=== PATIENT | female | born 1960 | race Caucasian/White ===

== ENCOUNTER 2021-08-19 12:48 | Emergency (ER) | payer OTHER ==
[2021-08-19 13:06] VITALS: TEMP 97; BMI 31.2
[2021-08-19] MEDS ORDERED: ACETAMINOPHEN 500 MG TABLET (FP) PO ONE (14:25)
[2021-08-19] MEDS ORDERED: ACETAMINOPHEN 1000 MG/100 ML VIAL IVPB ONE (14:34)
[2021-08-19] MEDS ORDERED: ACETAMINOPHEN INJECTION 100 ML IVPB ONE (14:36)
[2021-08-19] MEDS ORDERED: SODIUM CHLORIDE 0.9% 500 ML INFUS.BAG IV ONE (14:36)
[2021-08-19 15:05] LABS: BASO % 0.6 % (0-2.0); HEMATOCRIT 36.7 % (32.4-45.2); HEMOGLOBIN 13.2 GM/dL (10.7-15.3); LYMPH % 10.5 % (8-40); MCHC 35.9 g/dl (32.0-36.0); MEAN CELL VOLUME 83.5 fl (80-96); MEAN PLT VOLUME 7.2 fl (7.5-11.1); MONO % 7.5 % (3.8-10.2); NEUT % 81.4 % (42.8-82.8); PLATELET COUNT 247 10^3/uL (134-434); WHITE BLOOD COUNT 9.1 K/mm3 (4.0-10.0)
[2021-08-19 15:22] LABS: CHLORIDE 99 mmol/L (98-107); SODIUM 134 mmol/L (136-145)
[2021-08-19 15:25] LABS: ALBUMIN 3.4 g/dl (3.4-5.0); ANION GAP 6 MMOL/L (8-16); BLOOD UREA NITROGEN 12.4 mg/dL (7-18); CALCIUM 8.8 mg/dL (8.5-10.1); CO2 29 mmol/L (21-32)
[2021-08-19 15:26] LABS: GLUCOSE,RANDOM 206 mg/dL (74-106)
[2021-08-19 15:28] LABS: CREATININE 0.8 mg/dL (0.55-1.3); SGOT/AST 12 U/L (15-37); SGPT/ALT 30 U/L (13-61)
[2021-08-19 15:29] LABS: BILIRUBIN,TOTAL 0.5 mg/dL (0.2-1); TOT PROT 7.3 g/dl (6.4-8.2)
[2021-08-19 15:30] LABS: ALK PHOS 87 U/L (45-117)
[2021-08-19 15:34] LABS: PHOSPHOROUS 0.9 mg/dL (2.5-4.9)
[2021-08-19] MEDS ORDERED: NAPH,MB-DB/K PH,MBDB POWDER PACKET PO ONE (16:59)
[2021-08-19 17:41] LABS: URINE APPEARANCE CLEAR; URINE BILIRUBIN NEGATIVE (NEGATIVE); URINE COLOR YELLOW; URINE GLUCOSE (UA) NEGATIVE (NEGATIVE); URINE KETONE 1+ (NEGATIVE); URINE LEUK ESTERASE NEGATIVE (NEGATIVE); URINE NITRITE NEGATIVE (NEGATIVE); URINE PROTEIN NEGATIVE (NEGATIVE); URINE UROBILINOGEN 0.2 mg/dL (0.2-1.0)
[2021-08-19] MEDS ORDERED: METOCLOPRAMIDE HCL 10 MG TABLET (FP) PO ONE (17:43)
[2021-08-19] MEDS ORDERED: KETOROLAC TROMETHAMINE 15 MG/ML VIAL IVPUSH ONE (17:44)
[2021-08-19] MEDS ORDERED: NAPH,MB-DB/K PH,MBDB POWDER PACKET ONE (18:12)
[2021-08-19] MEDS ORDERED: KETOROLAC TROMETHAMINE 15 MG/ML VIAL ONE (18:13)
[2021-08-19 19:33] VITALS: BP 103/82; PULSE 103
== END 2021-08-19 20:13 | disposition home or self-care (01) ==
LOC: JER 12:48
PROC: 3E0333Z Introduction of Anti-inflammatory into Peripheral Vein, Percutaneous Approach (ICD-10-PCS; principal; 2021-08-19)
PROC: 3E033GC Introduction of Other Therapeutic Substance into Peripheral Vein, Percutaneous Approach (ICD-10-PCS; 2021-08-19)
PROC: 3E0333Z Introduction of Anti-inflammatory into Peripheral Vein, Percutaneous Approach (ICD-10-PCS; 2021-08-19)
DX: R51.9 Headache, unspecified (principal); R10.9 Unspecified abdominal pain
CPT/HCPCS: 36415; 70450-TC; 71046-TC-FY; 80053; 81003; 82550; 83735; 84100; 84484; 85025; 87086; 87804; 93005; 93010; 99285-25; C9803; J0131; U0003; U0005

== ENCOUNTER 2021-08-21 12:34 | Emergency (ER) | payer OTHER ==
[2021-08-21 12:57] VITALS: BP 108/66; PULSE 88; TEMP 100.1; BMI 33.2
[2021-08-21] MEDS ORDERED: SODIUM CHLORIDE 1,000 ML IV STA (14:00)
[2021-08-21] MEDS ORDERED: ACETAMINOPHEN 1000 MG/100 ML VIAL IVPB ONE (14:00)
[2021-08-21] MEDS ORDERED: ACETAMINOPHEN INJECTION 100 ML IVPB ONE (14:35)
[2021-08-21 15:02] LABS: BASO % 0.5 % (0-2.0); HEMATOCRIT 37.3 % (32.4-45.2); LYMPH % 15.2 % (8-40); MCH 29.2 pg (25.7-33.7); MEAN CELL VOLUME 83.4 fl (80-96); MEAN PLT VOLUME 7.6 fl (7.5-11.1); MONO % 6.6 % (3.8-10.2); NEUT % 77.7 % (42.8-82.8); PLATELET COUNT 264 10^3/uL (134-434); RBC 4.47 M/mm3 (3.60-5.2); RDW 13.4 % (11.6-15.6); WHITE BLOOD COUNT 7.1 K/mm3 (4.0-10.0)
[2021-08-21 15:20] LABS: CHLORIDE 96 mmol/L (98-107); SODIUM 132 mmol/L (136-145)
[2021-08-21 15:22] LABS: CALCIUM 9.2 mg/dL (8.5-10.1)
[2021-08-21 15:23] LABS: ALBUMIN 3.3 g/dl (3.4-5.0); ANION GAP 10 MMOL/L (8-16); BLOOD UREA NITROGEN 9.8 mg/dL (7-18); CO2 25 mmol/L (21-32); GLUCOSE,RANDOM 151 mg/dL (74-106)
[2021-08-21 15:26] LABS: CREATININE 0.7 mg/dL (0.55-1.3); SGOT/AST 30 U/L (15-37); SGPT/ALT 64 U/L (13-61)
[2021-08-21 15:28] LABS: BILIRUBIN,TOTAL 0.6 mg/dL (0.2-1); TOT PROT 7.3 g/dl (6.4-8.2)
[2021-08-21 15:29] LABS: ALK PHOS 97 U/L (45-117)
== END 2021-08-21 20:00 | disposition home or self-care (01) ==
LOC: JERFT 12:34 → JER 12:34 → JERFT 20:00
PROC: 3E033NZ Introduction of Analgesics, Hypnotics, Sedatives into Peripheral Vein, Percutaneous Approach (ICD-10-PCS; principal; 2021-08-21)
PROC: 3E0337Z Introduction of Electrolytic and Water Balance Substance into Peripheral Vein, Percutaneous Approach (ICD-10-PCS; 2021-08-21)
DX: J18.9 Pneumonia, unspecified organism (principal)
CPT/HCPCS: 36415; 71046-TC-FY; 74177-TC; 80053; 82550; 82553; 84484; 85025; 87040; 93005; 93010; 99285-25; C9803; J0131; U0003; U0005

== ENCOUNTER 2024-02-17 20:36 | Emergency (ER) | payer OTHER ==
[2024-02-17 20:45] VITALS: BP 142/87; PULSE 95; RESP 18; TEMP 98.4
[2024-02-17] MEDS ORDERED: ACETAMINOPHEN 500 MG TABLET (FP) ONE (22:09)
[2024-02-17] MEDS: ACETAMINOPHEN 500 MG TABLET (FP) PO ONE (22:11)
== END 2024-02-17 23:20 | disposition home or self-care (01) ==
LOC: JER 20:36 → JERFT 20:36 → JER 23:20
DX: Z04.3 Encounter for examination and observation following other accident (principal); W19.XXXA Unspecified fall, initial encounter
CPT/HCPCS: 73610-TC-LT-FY; 73630-TC-LT; 99283-25